=== PATIENT | female | born 1970 | race African-American/Black ===

== ENCOUNTER → 2017-03-28 | Outpatient (CLI) | payer OTHER, BC ==
--- NOTE | 2017-03-28 16:03 | RAD ---
DATE: 03/28/2017. EXAM: DIGITAL SCREEN BILAT W/CAD. HISTORY: Routine mammographic screening. COMPARISON: 04/03/2016, 04/30/2013, 07/31/2011. This study was interpreted with the benefit of Computerized Aided Detection (CAD). FINDINGS: The breast parenchyma is dense, which could reduce sensitivity of mammography. There are no suspicious masses, microcalcifications or architectural distortion. Scattered calcifications are benign. BI-RADS CATEGORY: 2 BENIGN FINDING(S). RECOMMENDED FOLLOW-UP: 12M 12 MONTH FOLLOW-UP. PQRS compliance statement: Patient information was entered into a reminder system with a target due date 03/28/2018 for the next mammogram. Mammography is a sensitive method for finding small breast cancers, but it does not detect them all and is not a substitute for careful clinical examination. A negative mammogram does not negate a clinically suspicious finding and should not result in delay in biopsying a clinically suspicious abnormality. "Our facility is accredited by the [employer] Mamm[employer]."
== END | disposition home or self-care (01) ==
LOC: MAMMO 12:53
PROVIDERS: ATTEND Internal Medicine
DX: Z12.31 Encounter for screening mammogram for malignant neoplasm of breast (principal)
CPT/HCPCS: G0202; 77067

== ENCOUNTER → 2018-07-16 | Outpatient (CLI) | payer OTHER ==
--- NOTE | 2018-07-16 13:21 | RAD ---
DATE: 07/16/2018 EXAM: DIGITAL SCREEN BILAT W/CAD HISTORY: Routine screening COMPARISON: 03/28/2017 This study was interpreted with the benefit of Computerized Aided Detection (CAD). Breast Density: DENSE The breast parenchyma is dense, which could reduce the sensitivity of mammography. Breast parenchyma level density D. FINDINGS: A small nodule in the lateral aspect of the left breast appears unchanged since 04/30/2013 and 04/03/2016. No new or enlarging breast densities are seen. No suspicious microcalcifications are evident. IMPRESSION: Stable mammograms without evidence of malignancy. BI-RADS CATEGORY: 2 BENIGN FINDING(S) RECOMMENDED FOLLOW-UP: 12M 12 MONTH FOLLOW-UP PQRS compliance statement: Patient information was entered into a reminder system with a target due date for the next mammogram. Mammography is a sensitive method for finding small breast cancers, but it does not detect them all and is not a substitute for careful clinical examination. A negative mammogram does not negate a clinically suspicious finding and should not result in delay in biopsying a clinically suspicious abnormality. "Our facility is accredited by the [employer] Mamm[employer]."
== END | disposition home or self-care (01) ==
LOC: MAMMO 10:30
PROVIDERS: ATTEND Internal Medicine
DX: Z12.31 Encounter for screening mammogram for malignant neoplasm of breast (principal)
CPT/HCPCS: 77067

== ENCOUNTER → 2019-09-16 | Outpatient (CLI) | payer OTHER ==
--- NOTE | 2019-09-16 16:04 | RAD ---
DATE: 09/16/2019 EXAM: DIGITAL SCREEN BILAT W/CAD HISTORY: Routine screening COMPARISON: 07/31/2011, 04/30/2013, 04/03/2016, 03/28/2017, 07/16/2018 mammographic exams This study was interpreted with the benefit of Computerized Aided Detection (CAD). Breast Density: DENSE The breast parenchyma is dense, which could reduce the sensitivity of mammography. Breast parenchyma level density D. FINDINGS: No suspicious calcifications or distortion. Left outer breast asymmetry stable compared to multiple prior exams. No suspicious new mass or distortion. IMPRESSION: Stable BI-RADS CATEGORY: 1 NEGATIVE RECOMMENDED FOLLOW-UP: 12M 12 MONTH FOLLOW-UP. PQRS compliance statement: Patient information was entered into a reminder system with a target due date for the next mammogram. Mammography is a sensitive method for finding small breast cancers, but it does not detect them all and is not a substitute for careful clinical examination. A negative mammogram does not negate a clinically suspicious finding and should not result in delay in biopsying a clinically suspicious abnormality. "Our facility is accredited by the [employer] Mammography [employer]."
== END | disposition home or self-care (01) ==
LOC: MAMMO 10:36
PROVIDERS: ATTEND Internal Medicine
DX: Z12.31 Encounter for screening mammogram for malignant neoplasm of breast (principal); N64.89 Other specified disorders of breast
CPT/HCPCS: 77067

== ENCOUNTER → 2020-10-05 | Outpatient (CLI) | payer OTHER ==
--- NOTE | 2020-10-06 08:45 | RAD ---
EXAMINATION: MG 2D BILAT SCREENING CLINICAL HISTORY: Routine screening TECHNIQUE: Digital craniocaudal and mediolateral oblique views of the bilateral breasts as well as ex aggerated CC view of the left breast. COMPARISON: 09/16/2019, 07/16/2018, 03/28/2017 BREAST COMPOSITION: The breasts are extremely dense, which lowers the sensitivity of mammography. FINDINGS: No evidence of suspicious mass, calcifications, or areas of architectural distortion. IMPRESSION: No mammographic evidence of malignancy. BI-RADS ASSESSMENT: Category 1: Negative RECOMMENDATION: Return for routine bilateral screening mammogram in one year. PQRS compliance statement - Patient information was entered into a reminder system with a target due date for the next mammogram. "Our facility is accredited by the [employer] Mammography [employer]." Electronically signed by: Eliazar Haque DO (10/06/2020 8:42 AM) [id number]
== END ==
LOC: MAMMO 10:53
PROVIDERS: ATTEND Internal Medicine
DX: Z12.31 Encounter for screening mammogram for malignant neoplasm of breast (principal)
CPT/HCPCS: 77067